=== PATIENT | male | born 1960 | race African-American/Black ===

== ENCOUNTER 2019-12-20 20:39 | Inpatient (IN) | payer MEDICAID, OTHER ==
[~2019-12-20] VITALS: Ht 185.4 cm; Wt 93.0 kg
[2019-12-20] MEDS ORDERED: ACETAMINOPHEN 325MG TABLET PO STA (21:56)
[2019-12-20 22:48] LABS: CHLORIDE 102 mEq/L (98-107)
[2019-12-20] MEDS ORDERED: LEVOFLOXACIN 500MG PREMIX 100 ML IV ONE (23:15)
[2019-12-20] MEDS ORDERED: SODIUM CHLORIDE 0.9% 1000ML BAG (SEPSIS BOLUS) IV ONE (23:15)
[2019-12-20 23:58] LABS: MEAN CORPUSCULAR HEMOGLOBIN 31.2 pg (28.0-32.0); MEAN CORPUSCULAR VOLUME 101.6 fL (80.0-94.0); MEAN PLATELET VOLUME 8.3 fl (7.4-10.4); PLATELET 83 x1000/uL (130-400); RED BLOOD CELL COUNT 1.33 mill/uL (4.7-6.1)
[2019-12-21 00:05] LABS: HEMOGLOBIN. 4.2 g/dL (14.0-18.0)
[2019-12-21 00:06] LABS: HEMATOCRIT. 13.6 % (42.0-52.0)
[2019-12-21] MEDS ORDERED: ENOXAPARIN 40MG/0.4ML SYR SUBCUT SCH (00:15)
[2019-12-21] MEDS ORDERED: IPRATROPIUM/ALBUTEROL 0.5-3(2.5)MG/3ML NEB NEB PRN (00:15)
[2019-12-21] MEDS ORDERED: ACETAMINOPHEN 325MG TABLET PO PRN (00:15)
[2019-12-21] MEDS ORDERED: LORAZEPAM 2MG/ML CPJ IV PRN (00:15)
[2019-12-21] MEDS ORDERED: CLONIDINE 0.1MG TABLET PO PRN (00:15)
[2019-12-21] MEDS ORDERED: DEXTROSE 50% WATER 50ML SYRINGE IV PRN (00:15)
[2019-12-21] MEDS ORDERED: HYDRALAZINE 20MG/ML VIAL IV PRN (00:15)
[2019-12-21] MEDS ORDERED: GUAIFENESIN 200MG/10ML SUGAR FREE UDC PO PRN (00:15)
[2019-12-21] MEDS ORDERED: ONDANSETRON HCL 4MG/2ML INJ IV PRN (00:15)
[2019-12-21] MEDS ORDERED: HYDROCODONE/ACETAMINOPHEN 10/325MG TABLET PO PRN (00:15)
[2019-12-21] MEDS ORDERED: DOCUSATE SODIUM 100MG CAPSULE PO PRN (00:15)
[2019-12-21] MEDS ORDERED: DIPHENHYDRAMINE 50MG/ML VIAL IV PRN (00:15)
[2019-12-21] MEDS ORDERED: MORPHINE SULFATE 2 MG/ML CPJ (NOT FOR IM USE) IV PRN (00:15)
[2019-12-21] MEDS ORDERED: MAGNESIUM/ALUMINUM HYDROXIDE/SIMETHICONE 30ML UDC PO PRN (00:15)
[2019-12-21 00:48] LABS: BG BASE EXCESS -3.7 mmol/L (-2.0-2.0); BG CARBOXYHEMOGLOBIN 0.3 % (0.5-1.5); BG DEOXYHEMOGLOBIN 11.1 % (0.0-5.0); BG FRACTION INSPIRED OXYGEN 21; BG HCO3 ACT 19.9 mmol/L (22.0-26.0); BG METHEMOGLOBIN 0.3 % (0.0-1.5); BG OXYGEN SATURATION 88.8 % (92.0-98.5); BG OXYHEMOGLOBIN 88.3 % (94.0-97.0); BG PCO2 29.2 mmHg (35.0-45.0); BG PH 7.452 (7.350-7.450); BG PO2 57.1 mmHg (75.0-100.0); BG SAMPLE SITE RIGHT RADIAL; BG TOTAL HEMOGLOBIN 5.5 g/dL (12.0-18.0); BG VENT MODE ROOM AIR
[2019-12-21 01:08] LABS: MEAN CORPUSCULAR HEMOGLOBIN 31.2 pg (28.0-32.0); MEAN CORPUSCULAR VOLUME 101.3 fL (80.0-94.0); MEAN PLATELET VOLUME 8.4 fl (7.4-10.4); PLATELET 80 x1000/uL (130-400); RED BLOOD CELL COUNT 1.29 mill/uL (4.7-6.1); RED CELL DISTRIBUTION WIDTH 17.3 % (11.6-14.6)
[2019-12-21 01:25] LABS: HEMATOCRIT. 13.1 % (42.0-52.0)
[2019-12-21 03:08] LABS: ATYPICAL LYMPHOCYTES 2; NUCLEATED RED BLOOD CELLS 1 /100 WBC; PLATELET ESTIMATE DECREASED
[2019-12-21 03:17] LABS: ATYPICAL LYMPHOCYTES 3; NUCLEATED RED BLOOD CELLS 1 /100 WBC
[2019-12-21 03:18] LABS: PLATELET ESTIMATE DECREASED
[2019-12-21] MEDS ORDERED: PIPERACILLIN/TAZ 3.375G PREMIX 50 ML IV NR (03:30)
[2019-12-21] MEDS ORDERED: POTASSIUM CHLORIDE 20MEQ TABLET SR PO NR (03:30)
[2019-12-21] MEDS ORDERED: VANCOMYCIN 1 G PREMIX 200 ML IV NR (04:00)
[2019-12-21] MEDS: SODIUM CHLORIDE 0.9% INJ 3ML FLUSH IVF SCH ×2 (06:00→14:09)
[2019-12-21] MEDS: BLOOD SUGAR DIAGNOSTIC STRIP TEST SCH ×3 (09:00→18:57)
[2019-12-21] MEDS: INSULIN LISPRO 100 UNITS/ML SUBCUT SCH ×3 (09:30→18:20)
[2019-12-21] MEDS ORDERED: PIPERACILLIN/TAZ 3.375G PREMIX 50 ML IV SCH (11:30)
[2019-12-21 11:46] LABS: MEAN CORPUSCULAR HEMOGLOBIN 30.9 pg (28.0-32.0); MEAN CORPUSCULAR VOLUME 95.6 fL (80.0-94.0); MEAN PLATELET VOLUME 8.5 fl (7.4-10.4); PLATELET 73 x1000/uL (130-400); RED BLOOD CELL COUNT 2.13 mill/uL (4.7-6.1); RED CELL DISTRIBUTION WIDTH 20.1 % (11.6-14.6)
[2019-12-21 12:22] LABS: HEMATOCRIT. 20.4 % (42.0-52.0); HEMOGLOBIN. 6.6 g/dL (14.0-18.0)
[2019-12-21 13:10] LABS: NUCLEATED RED BLOOD CELLS 1 /100 WBC
[2019-12-21 13:45] LABS: PLATELET ESTIMATE DECREASED
[2019-12-22] VITALS (34 sets, daily range): BP systolic 99–122; BP diastolic 59–75
[2019-12-22 01:19] LABS: HEMATOCRIT 28.5 % (42.0-52.0); HEMOGLOBIN 9.4 g/dL (14.0-18.0)
[2019-12-22] MEDS: SODIUM CHLORIDE 0.9% INJ 3ML FLUSH IVF SCH ×3 (05:58→21:20)
[2019-12-22] MEDS: BLOOD SUGAR DIAGNOSTIC STRIP TEST SCH ×4 (05:58→21:16)
[2019-12-22] MEDS ORDERED: PIPERACILLIN/TAZ 3.375G PREMIX 50 ML IV SCH (06:00)
[2019-12-22] MEDS: INSULIN LISPRO 100 UNITS/ML SUBCUT SCH ×4 (06:08→21:00)
[2019-12-22 06:10] LABS: HEMATOCRIT. 28.8 % (42.0-52.0); HEMOGLOBIN. 9.5 g/dL (14.0-18.0); MEAN CORPUSCULAR HEMOGLOBIN 31.2 pg (28.0-32.0); MEAN CORPUSCULAR VOLUME 95.1 fL (80.0-94.0); MEAN PLATELET VOLUME 8.5 fl (7.4-10.4); PLATELET 63 x1000/uL (130-400); RED BLOOD CELL COUNT 3.03 mill/uL (4.7-6.1); RED CELL DISTRIBUTION WIDTH 20.1 % (11.6-14.6)
[2019-12-22 06:17] LABS: CHLORIDE 111 mEq/L (98-107)
[2019-12-22 06:27] LABS: HAPTOGLOBIN 421 mg/dL (30-200)
[2019-12-22] MEDS: VANCOMYCIN 1250MG in DEXTROSE 5% WATER 250ML IV SCH ×2 (06:27→18:03)
[2019-12-22] MEDS: PIPERACILLIN/TAZ 3.375G PREMIX 50 ML IV SCH ×2 (07:00)
[2019-12-22] MEDS: PIPERACILLIN/TAZOBACTAM 3.375 G in DEXT 5% WATER 100 ML IV SCH ×2 (08:37→16:31)
[2019-12-22 09:57] LABS: PLATELET ESTIMATE DECREASED
[2019-12-22] MEDS ORDERED: POTASSIUM CHLORIDE 20MEQ TABLET SR PO SCH (11:15)
[2019-12-23] VITALS: BP 103/59
[2019-12-23] MEDS: PIPERACILLIN/TAZOBACTAM 3.375 G in DEXT 5% WATER 100 ML IV SCH ×3 (00:59→16:49)
[2019-12-23 04:00] VITALS: BP 104/64
[2019-12-23] MEDS: BLOOD SUGAR DIAGNOSTIC STRIP TEST SCH ×4 (06:25→21:50)
[2019-12-23] MEDS: INSULIN LISPRO 100 UNITS/ML SUBCUT SCH ×4 (06:26→21:00)
[2019-12-23] MEDS: SODIUM CHLORIDE 0.9% INJ 3ML FLUSH IVF SCH ×3 (06:27→22:23)
[2019-12-23] MEDS: VANCOMYCIN 1250MG in DEXTROSE 5% WATER 250ML IV SCH ×2 (06:27→22:24)
[2019-12-23 08:00] VITALS: BP 100/60
[2019-12-23 12:00] VITALS: BP_SYST 101; BP_SYST 105; BP_DIAS 65; BP_DIAS 67
[2019-12-23 16:00] VITALS: BP 105/65
[2019-12-23 20:00] VITALS: BP 106/67
[2019-12-23] MEDS: GUAIFENESIN 600MG ER TABLET PO SCH ×2 (21:52→22:22)
[2019-12-24] VITALS: BP 122/80
[2019-12-24] MEDS: PIPERACILLIN/TAZOBACTAM 3.375 G in DEXT 5% WATER 100 ML IV SCH ×4 (00:23→23:49)
[2019-12-24 04:00] VITALS: BP 103/64
[2019-12-24] MEDS: BLOOD SUGAR DIAGNOSTIC STRIP TEST SCH ×4 (06:23→21:00)
[2019-12-24] MEDS: LEVOTHYROXINE SODIUM 200MCG TABLET PO SCH (06:24)
[2019-12-24] MEDS: SODIUM CHLORIDE 0.9% INJ 3ML FLUSH IVF SCH ×3 (06:25→22:58)
[2019-12-24] MEDS: VANCOMYCIN 1250MG in DEXTROSE 5% WATER 250ML IV SCH (06:25)
[2019-12-24 06:43] LABS: HEMATOCRIT. 28.6 % (42.0-52.0); HEMOGLOBIN. 9.4 g/dL (14.0-18.0); MEAN CORPUSCULAR HEMOGLOBIN 31.1 pg (28.0-32.0); MEAN CORPUSCULAR VOLUME 94.7 fL (80.0-94.0); MEAN PLATELET VOLUME 9.4 fl (7.4-10.4); RED BLOOD CELL COUNT 3.02 mill/uL (4.7-6.1); RED CELL DISTRIBUTION WIDTH 19.1 % (11.6-14.6)
[2019-12-24] MEDS ORDERED: LEVOTHYROXINE SODIUM 200MCG TABLET PO SCH (06:45)
[2019-12-24 07:02] LABS: CHLORIDE 107 mEq/L (98-107)
[2019-12-24] MEDS: INSULIN LISPRO 100 UNITS/ML SUBCUT SCH ×4 (07:15→21:00)
[2019-12-24 08:00] VITALS: BP 101/67
[2019-12-24 08:42] LABS: PLATELET 50 x1000/uL (130-400)
[2019-12-24] MEDS: GUAIFENESIN 600MG ER TABLET PO SCH ×2 (10:10→21:00)
[2019-12-24 13:49] LABS: PLATELET ESTIMATE MARKEDLY DECREASED
[2019-12-24] MEDS ORDERED: VANCOMYCIN 1 G PREMIX 200 ML IV SCH (14:00)
[2019-12-24 16:00] VITALS: BP 111/71
[2019-12-24 20:00] VITALS: BP 101/64
[2019-12-25] VITALS: BP 104/69
[2019-12-25 04:00] VITALS: BP 110/65
[2019-12-25] MEDS: BLOOD SUGAR DIAGNOSTIC STRIP TEST SCH (06:39)
[2019-12-25] MEDS: LEVOTHYROXINE SODIUM 200MCG TABLET PO SCH (06:40)
[2019-12-25] MEDS: SODIUM CHLORIDE 0.9% INJ 3ML FLUSH IVF SCH (06:40)
[2019-12-25] MEDS: INSULIN LISPRO 100 UNITS/ML SUBCUT SCH (06:44)
[2019-12-25 08:00] VITALS: BP 106/66
[2019-12-25] MEDS: PIPERACILLIN/TAZOBACTAM 3.375 G in DEXT 5% WATER 100 ML IV SCH (08:42)
[2019-12-25] MEDS: GUAIFENESIN 600MG ER TABLET PO SCH (09:01)
[2019-12-25 09:52] LABS: HEMATOCRIT 28.7 % (42.0-52.0); HEMOGLOBIN 9.2 g/dL (14.0-18.0); MEAN CORPUSCULAR HEMOGLOBIN 30.6 pg (28.0-32.0); MEAN CORPUSCULAR VOLUME 95.3 fL (80.0-94.0); RED BLOOD CELL COUNT 3.02 mill/uL (4.7-6.1); RED CELL DISTRIBUTION WIDTH 18.9 % (11.6-14.6)
[2019-12-25 09:56] LABS: PLATELET 44 x1000/uL (130-400)
[2019-12-25 12:00] VITALS: BP 102/64
[2019-12-25 14:23] VITALS: BP 102/64
[2019-12-25] MEDS ORDERED: LEVO500T2 MT (14:31)
== END 2019-12-25 16:18 | disposition home or self-care (01) | DRG 720 ==
LOC: ER 20:39 → EDBEDREQTM 23:55 → EDBEDREQSVC 12-21 00:40 → EDBEDREQTM 12-21 00:40 → EDBEDREQ 12-21 19:34 → MICUNO 12-21 23:52 → ENRESERV 12-22 01:55 → 5WST 12-22 20:05
PROVIDERS: ADMIT Internal Medicine; ATTEND Internal Medicine
PROC: 30233N1 Transfusion of Nonautologous Red Blood Cells into Peripheral Vein, Percutaneous Approach (ICD-10-PCS; principal; 2019-12-21)
DX: A41.9 Sepsis, unspecified organism (principal); J96.00 Acute respiratory failure, unspecified whether with hypoxia or hypercapnia; J18.1 Lobar pneumonia, unspecified organism; D69.6 Thrombocytopenia, unspecified; C91.10 Chronic lymphocytic leukemia of B-cell type not having achieved remission; E44.1 Mild protein-calorie malnutrition; D64.9 Anemia, unspecified; E11.9 Type 2 diabetes mellitus without complications; I10 Essential (primary) hypertension; J44.0 Chronic obstructive pulmonary disease with (acute) lower respiratory infection; E87.6 Hypokalemia; E66.9 Obesity, unspecified; E89.0 Postprocedural hypothyroidism; Z20.828 Contact with and (suspected) exposure to other viral communicable diseases; Z85.850 Personal history of malignant neoplasm of thyroid; Z68.27 Body mass index [BMI] 27.0-27.9, adult
CPT/HCPCS: 36415; 71045; 80048; 80053; 80202; 82962; 83010; 83605; 83615; 83880; 84145; 84484; 85014; 85018; 85025; 85027; 86880; 87635; 87804; 93005; 96365; 96366; 96367; 96368; 99291; J1956; J2543; J3370; J7030; J7060